=== PATIENT | female | born 1955 ===

== ENCOUNTER 2021-11-27 13:01 | Inpatient (IN) ==
[2021-11-27] MEDS ORDERED: ONDANSETRON 4 MG/2 ML VIAL IV PRN (15:37)
[2021-11-27] MEDS ORDERED: guaiFENesin/DM ER 600-30 MG TABLET PO PRN (15:37)
[2021-11-27] MEDS ORDERED: SODIUM CHLORIDE 0.9% 1,000 ML IV PRN (15:47)
[2021-11-27] MEDS ORDERED: ALBUTEROL 1.25 MG/3 ML NEB RESP TX PRN (15:51)
[2021-11-27] MEDS ORDERED: FUROSEMIDE 40 MG/4 ML VIAL IV ONE (15:52)
[2021-11-27] MEDS ORDERED: hydrALAZINE 25 MG TABLET PO PRN (16:25)
[2021-11-27] MEDS ORDERED: MAGNESIUM HYDROXIDE SUSP 30 ML UDCUP PO PRN (16:25)
[2021-11-27 16:44] LABS: Alanine Aminotransferase 10 U/L (13-56); Alkaline Phosphatase 41 U/L (45-117); Aspartate Amino Transferase 26 U/L (0-37); Bilirubin,Total < 0.39 MG/DL (0.20-1.00); Blood Urea Nitrogen 17 MG/DL (7-18); Calcium 7.4 MG/DL (8.5-10.1); Carbon Dioxide 30 MMOL/L (21-32); Estimated Glom Filtration Rate 8 ML/MIN; Glucose 71 MG/DL (74-106); Osmolality,Calculated 274.7 MOS/KG (273-304); Sodium 138 MMOL/L (136-145); Total Protein 4.8 G/DL (6.4-8.2)
[2021-11-27 17:00] LABS: Ferritin 1998.2 ng/mL (8-252)
[2021-11-27 17:21] LABS: Folate 20.68 NG/ML (5.38-24.0)
[2021-11-27] MEDS ORDERED: AMIODARONE 200 MG TABLET PO SCH (21:00)
[2021-11-27] MEDS: SEVELAMER CARBONATE 800 MG TABLET PO SCH (21:29)
[2021-11-27] MEDS: carvediloL 12.5 MG TABLET PO SCH (21:29)
[2021-11-27] MEDS: APIXABAN 2.5 MG TABLET PO SCH (21:29)
[2021-11-28] MEDS: GLUCAGON 1 MG VIAL IM PRN ×2 (00:41→08:14)
[2021-11-28] MEDS ORDERED: ETOMIDATE 20 MG/10 ML VIAL IV ONE ×2 (00:42→01:17)
[2021-11-28] MEDS ORDERED: VECURONIUM 10 MG VIAL IV ONE ×2 (00:43→01:20)
[2021-11-28] MEDS: DEXTROSE 10% 25 GM/250 ML BAG IV PRN ×4 (01:13→23:20)
[2021-11-28 02:02] LABS: ABG Base Excess 3.7 MMOL/L (-2.5-2.5); ABG HCO3 27.8 MMOL/L (20-26); ABG Oxygen Saturation 98.4 % (95-100); ABG PCO2 46.6 MM HG (35-48); ABG PH 7.401 (7.35-7.45); ABG TCO2 27.5 MMOL/L (23-27)
[2021-11-28] MEDS ORDERED: NOREPINEPHRINE 4 MG/4 ML VIAL IV ONE (02:38)
[2021-11-28 03:13] LABS: Eosinophils % 2.9 % (0.00-10.9); Hematocrit 21.3 VOL% (35.7-47.0); Hemoglobin 6.8 GM/DL (12.0-16.0); Immature Granulocytes % 2.9 %; Immature Granulocytes Absolute 0.02 #; Lymphocytes # 0.4 10*3/uL (1.4-4.0); Lymphocytes % 52.2 % (21.3-54.2); Mean Corpuscular HGB Conc 31.9 GM/DL (32-36); Mean Corpuscular Volume 97.3 FL (87-102); Monocytes % 4.3 % (1.7-12.7); Neutrophils % 37.7 % (38.7-73.9); Platelet Count 64 T/CUMM (130-400); Red Blood Count 2.19 MC/CUMM (3.8-5.5); Red Cell Distribution Width 14.9 % (9.3-17.3)
[2021-11-28 03:23] LABS: White Blood Count 0.7 T/CUMM (4-12)
[2021-11-28 03:52] LABS: Lymphocytes 64 % (20-55); Platelet Estimate Decreased; Segmented Neutrophils 29 % (50-85); Total Cells Counted 100
[2021-11-28 03:54] LABS: ABG Base Excess 3.8 MMOL/L (-2.5-2.5); ABG HCO3 27.8 MMOL/L (20-26); ABG Oxygen Saturation 93.5 % (95-100); ABG PCO2 43.7 MM HG (35-48); ABG PH 7.424 (7.35-7.45); ABG PO2 64.1 MM HG (80-95); ABG TCO2 27.3 MMOL/L (23-27)
[2021-11-28] MEDS: NOREPINEPHRINE 16 MG in SODIUM CHLORIDE 0.9% 234 ML IV PRN ×2 (03:59→21:47)
[2021-11-28] MEDS ORDERED: SODIUM BICARBONATE 50 MEQ/50 ML SYRINGE IV ONE ×2 (04:13→13:34)
[2021-11-28] MEDS ORDERED: VANCOMYCIN INJ 1,000 MG in SODIUM CHLORIDE 0.9% 250 ML IV ONE (04:17)
[2021-11-28] MEDS ORDERED: DEXTROSE 50% 25 GM/50 ML SYRINGE IV ONE (04:18)
[2021-11-28] MEDS ORDERED: HYDROCORTISONE 100 MG VIAL IV ONE (04:19)
[2021-11-28 04:30] LABS: INR 1.7; PT Patient Result 18.7 SECS (10.5-12.0); Partial Thromboplastin Time 50.3 SECS (23.8-32.1)
[2021-11-28] MEDS: HYDROCORTISONE 100 MG VIAL IV SCH ×3 (04:30→20:14)
[2021-11-28] MEDS ORDERED: EPINEPHrine 1 MG/10 ML SYRINGE IV ONE ×2 (04:38→13:34)
[2021-11-28 04:54] LABS: Bacteria,Urine Occasional /HPF (Few); Bilirubin,Urine Negative (Negative); Blood, Urine Small mg/dL (Negative); Glucose,Urine (UA) 50 mg/dL (Negative); Ketones,Urine 5 mg/dL (Negative); Mucus,Urine Occasional /LPF (Occasional); Nitrite,Urine Negative (Negative); Protein,Urine >=500 MG/DL; RBC,Urine 3 /HPF (0-4); Squamous Epithelial Cell,Urine Moderate /HPF (0-10); Urine Appearance Slightly Hazy (Clear); Urine Color Yellow (Yellow); Urine Specific Gravity 1.007 (1.001-1.035); Urine Urobilinogen < 2.0 EU/DL (<2.0)
[2021-11-28] MEDS ORDERED: MEROPENEM 500 MG in SODIUM CHLORIDE 0.9% 100 ML IV SCH ×2 (06:00→12:30)
[2021-11-28] MEDS: LEVOTHYROXINE 125 MCG TABLET PO SCH (06:28)
[2021-11-28 07:57] LABS: Albumin 1.8 G/DL (3.4-5.0); Bilirubin,Total 0.4 MG/DL (0.20-1.00); Calcium 8.6 MG/DL (8.5-10.1); Osmolality,Calculated 278.7 MOS/KG (273-304); Potassium 3.8 MMOL/L (3.5-5.1); Total Protein 4.3 G/DL (6.4-8.2)
[2021-11-28] MEDS: DEXTROSE 10% 1,000 ML IV SCH (08:00)
[2021-11-28] MEDS: ASCORBIC ACID 500 MG TABLET PO SCH (08:13)
[2021-11-28] MEDS: SEVELAMER CARBONATE 800 MG TABLET PO SCH ×3 (08:13→20:14)
[2021-11-28] MEDS: CHOLECALCIFEROL 1,000 UNIT TABLET PO SCH (08:13)
[2021-11-28] MEDS: APIXABAN 2.5 MG TABLET PO SCH ×2 (08:13→20:14)
[2021-11-28] MEDS: carvediloL 12.5 MG TABLET PO SCH (08:13)
[2021-11-28] MEDS: ZINC GLUCONATE 50 MG TABLET PO SCH (08:14)
[2021-11-28] MEDS ORDERED: ARIPiprazole 15 MG TABLET PO SCH (09:00)
[2021-11-28] MEDS ORDERED: PANTOPRAZOLE 40 MG TABLET PO SCH (09:00)
[2021-11-28] MEDS ORDERED: MEROPENEM 1,000 MG in SODIUM CHLORIDE 0.9% 100 ML IV SCH (09:35)
[2021-11-28] MEDS: MEROPENEM 500 MG in SODIUM CHLORIDE 0.9% 100 ML IV SCH (12:22)
[2021-11-28] MEDS ORDERED: DOPamine 800 MG/250 ML PREMIX IV PRN (12:51)
[2021-11-28] MEDS ORDERED: DOPamine 800 MG/250 ML PREMIX IV ONE (12:54)
[2021-11-28 13:03] LABS: Basophils % 1.3 % (0.0-0.8); Eosinophils % 1.3 % (0.00-10.9); Hematocrit 26.9 VOL% (35.7-47.0); Hemoglobin 8.3 GM/DL (12.0-16.0); Immature Granulocytes % 1.3 %; Immature Granulocytes Absolute 0.01 #; Lymphocytes # 0.4 10*3/uL (1.4-4.0); Lymphocytes % 43.8 % (21.3-54.2); Mean Corpuscular HGB Conc 30.9 GM/DL (32-36); Mean Corpuscular Volume 93.7 FL (87-102); Mean Platelet Volume 11.4 FL (9.6-12.0); Monocytes % 2.5 % (1.7-12.7); NRBC # 0.02 10*3/uL; Neutrophils % 49.8 % (38.7-73.9); Platelet Count 48 T/CUMM (130-400); Red Blood Count 2.87 MC/CUMM (3.8-5.5); Red Cell Distribution Width 19.8 % (9.3-17.3)
[2021-11-28 13:09] LABS: White Blood Count 0.8 T/CUMM (4-12)
[2021-11-28 13:22] LABS: Albumin 1.7 G/DL (3.4-5.0); Bilirubin,Total 0.6 MG/DL (0.20-1.00); Calcium 7.1 MG/DL (8.5-10.1); Osmolality,Calculated 271.2 MOS/KG (273-304); Potassium 4.2 MMOL/L (3.5-5.1); Total Protein 4.2 G/DL (6.4-8.2)
[2021-11-28] MEDS ORDERED: CALCIUM CHLORIDE 1,000 MG/10 ML SYRINGE IV ONE (13:34)
[2021-11-28 14:03] LABS: Atypical Lymphocytes Many; Lymphocytes 72 % (20-55); Nucleated Red Blood Cells 2 (0-5); Segmented Neutrophils 25 % (50-85); Total Cells Counted 100
[2021-11-28 14:04] LABS: Burr Cells Few; Schistocytes Few; Target Cells Few
[2021-11-28 14:05] LABS: Anisocytosis 1+; Platelet Estimate Decreased
[2021-11-28 14:06] LABS: Hypochromia 1+
[2021-11-28] MEDS: ACETAMINOPHEN 325 MG TABLET PO PRN (23:09)
[2021-11-28] MEDS: PHENYLEPHRINE DRIP 40 MG/250 ML PREMIX IV PRN (23:50)
[2021-11-29] MEDS: PHENYLEPHRINE DRIP 40 MG/250 ML PREMIX IV PRN (01:50)
[2021-11-29] MEDS: NOREPINEPHRINE 16 MG in SODIUM CHLORIDE 0.9% 234 ML IV PRN ×6 (01:50→23:03)
[2021-11-29] MEDS: DEXTROSE 10% 1,000 ML IV SCH ×2 (03:38→10:56)
[2021-11-29] MEDS: HYDROCORTISONE 100 MG VIAL IV SCH ×3 (03:38→20:13)
[2021-11-29] MEDS: PHENYLEPHRINE INJ 160 MG in SODIUM CHLORIDE 0.9% 234 ML IV PRN ×3 (03:45→20:17)
[2021-11-29 04:09] LABS: ABG Base Excess -11.1 MMOL/L (-2.5-2.5); ABG HCO3 15.4 MMOL/L (20-26); ABG Oxygen Saturation 77.2 % (95-100); ABG PCO2 51.9 MM HG (35-48); ABG PO2 52.5 MM HG (80-95)
[2021-11-29 04:11] LABS: ABG PH 7.148 (7.35-7.45)
[2021-11-29] MEDS ORDERED: SODIUM BICARBONATE 50 MEQ/50 ML VIAL IV ONE (04:15)
[2021-11-29 04:29] LABS: Calcium 6.4 MG/DL (8.5-10.1); Osmolality,Calculated 265.8 MOS/KG (273-304); Potassium 4.4 MMOL/L (3.5-5.1)
[2021-11-29 04:42] LABS: Eosinophils % 0.5 % (0.00-10.9); Hematocrit 33.6 VOL% (35.7-47.0); Hemoglobin 10.6 GM/DL (12.0-16.0); Lymphocytes # 0.3 10*3/uL (1.4-4.0); Lymphocytes % 18.1 % (21.3-54.2); Mean Corpuscular HGB Conc 31.5 GM/DL (32-36); Mean Corpuscular Volume 95.2 FL (87-102); Monocytes % 2.7 % (1.7-12.7); NRBC # 0.02 10*3/uL; Neutrophils % 78.7 % (38.7-73.9); Red Blood Count 3.53 MC/CUMM (3.8-5.5); Red Cell Distribution Width 18.7 % (9.3-17.3); White Blood Count 1.9 T/CUMM (4-12)
[2021-11-29 04:44] LABS: Platelet Count 15 T/CUMM (130-400)
[2021-11-29] MEDS ORDERED: SODIUM CHLORIDE 0.9% 1,000 ML IV PRN ×2 (04:49→10:53)
[2021-11-29] MEDS: ACETAMINOPHEN 325 MG TABLET PO PRN ×2 (04:56→20:15)
[2021-11-29 05:05] LABS: Hypochromia Slight; Platelet Estimate Decreased
[2021-11-29] MEDS ORDERED: MEROPENEM 500 MG in SODIUM CHLORIDE 0.9% 100 ML IV SCH (06:00)
[2021-11-29 06:18] LABS: Eosinophils 2 % (0-10); Lymphocytes 37 % (20-55); Nucleated Red Blood Cells 3 (0-5); Segmented Neutrophils 19 % (50-85); Total Cells Counted 101
[2021-11-29] MEDS: LEVOTHYROXINE 125 MCG TABLET PO SCH (06:22)
[2021-11-29] MEDS: ASCORBIC ACID 500 MG TABLET PO SCH (08:10)
[2021-11-29] MEDS: CHOLECALCIFEROL 1,000 UNIT TABLET PO SCH (08:10)
[2021-11-29] MEDS: PANTOPRAZOLE 40 MG VIAL IV SCH (08:10)
[2021-11-29] MEDS: SEVELAMER CARBONATE 800 MG TABLET PO SCH ×3 (08:10→20:13)
[2021-11-29] MEDS: APIXABAN 2.5 MG TABLET PO SCH (08:10)
[2021-11-29] MEDS: ZINC GLUCONATE 50 MG TABLET PO SCH (08:10)
[2021-11-29 09:29] LABS: ABG Base Excess -6.5 MMOL/L (-2.5-2.5); ABG PH 7.276 (7.35-7.45); ABG PO2 53.2 MM HG (80-95); ABG TCO2 21.4 MMOL/L (23-27)
[2021-11-29 13:03] LABS: Basophils % 0.4 % (0.0-0.8); Hematocrit 33.8 VOL% (35.7-47.0); Hemoglobin 10.6 GM/DL (12.0-16.0); Immature Granulocytes % 0.4 %; Immature Granulocytes Absolute 0.01 #; Lymphocytes # 0.2 10*3/uL (1.4-4.0); Mean Corpuscular HGB Conc 31.4 GM/DL (32-36); Mean Corpuscular Volume 95.8 FL (87-102); Monocytes % 3.1 % (1.7-12.7); NRBC # 0.02 10*3/uL; Neutrophils % 87.1 % (38.7-73.9); Red Blood Count 3.53 MC/CUMM (3.8-5.5); Red Cell Distribution Width 18.6 % (9.3-17.3); White Blood Count 2.6 T/CUMM (4-12)
[2021-11-29 13:07] LABS: Platelet Count 16 T/CUMM (130-400)
[2021-11-29] MEDS: MEROPENEM 500 MG in SODIUM CHLORIDE 0.9% 100 ML IV SCH (13:19)
[2021-11-29 13:57] LABS: Band Neutrophils 1 % (0-10); Eosinophils 1 % (0-10); Lymphocytes 8 % (20-55); Metamyelocytes 1 %; Nucleated Red Blood Cells 1 (0-5); Segmented Neutrophils 83 % (50-85); Total Cells Counted 100
[2021-11-29 14:02] LABS: Platelet Estimate Decreased
[2021-11-29 14:06] LABS: Burr Cells 1+; Hypochromia 1+
[2021-11-29] MEDS: DEXTROSE 10% 25 GM/250 ML BAG IV PRN ×2 (14:47→17:35)
[2021-11-30] MEDS: ACETAMINOPHEN 325 MG TABLET PO PRN (00:25)
[2021-11-30] MEDS: DEXTROSE 10% 1,000 ML IV SCH (00:40)
[2021-11-30] MEDS: NOREPINEPHRINE 16 MG in SODIUM CHLORIDE 0.9% 234 ML IV PRN ×2 (03:36→09:09)
[2021-11-30 03:49] LABS: ABG Base Excess -10.5 MMOL/L (-2.5-2.5); ABG HCO3 15.9 MMOL/L (20-26); ABG Oxygen Saturation 84.7 % (95-100); ABG PCO2 46.5 MM HG (35-48); ABG PO2 57.9 MM HG (80-95); ABG TCO2 16.7 MMOL/L (23-27)
[2021-11-30 03:52] LABS: ABG PH 7.185 (7.35-7.45)
[2021-11-30 03:57] LABS: Basophils % 0.3 % (0.0-0.8); Hematocrit 29.7 VOL% (35.7-47.0); Hemoglobin 9.3 GM/DL (12.0-16.0); Immature Granulocytes % 1.5 %; Immature Granulocytes Absolute 0.09 #; Lymphocytes # 0.2 10*3/uL (1.4-4.0); Lymphocytes % 2.9 % (21.3-54.2); Mean Corpuscular HGB Conc 31.3 GM/DL (32-36); Mean Corpuscular Volume 94.3 FL (87-102); Monocytes % 10.1 % (1.7-12.7); NRBC # 0.03 10*3/uL; Neutrophils % 85.2 % (38.7-73.9); Red Blood Count 3.15 MC/CUMM (3.8-5.5); Red Cell Distribution Width 18.6 % (9.3-17.3); White Blood Count 5.8 T/CUMM (4-12)
[2021-11-30] MEDS ORDERED: SODIUM BICARBONATE 50 MEQ/50 ML VIAL IV ONE (03:59)
[2021-11-30 04:02] LABS: Platelet Count 3 T/CUMM (130-400)
[2021-11-30] MEDS ORDERED: SODIUM CHLORIDE 0.9% 1,000 ML IV PRN (04:05)
[2021-11-30 04:19] LABS: Calcium 6.4 MG/DL (8.5-10.1); Osmolality,Calculated 265.8 MOS/KG (273-304); Potassium 3.7 MMOL/L (3.5-5.1)
[2021-11-30] MEDS: HYDROCORTISONE 100 MG VIAL IV SCH (04:19)
[2021-11-30] MEDS ORDERED: SODIUM BICARB INJ 100 MEQ in DEXTROSE 5% 1,000 ML IV SCH (05:00)
[2021-11-30] MEDS: PHENYLEPHRINE INJ 160 MG in SODIUM CHLORIDE 0.9% 234 ML IV PRN (05:04)
[2021-11-30] MEDS: LEVOTHYROXINE 125 MCG TABLET PO SCH (06:04)
[2021-11-30 06:18] LABS: Band Neutrophils 7 % (0-10); Lymphocytes 3 % (20-55); Platelet Estimate Decreased; Segmented Neutrophils 74 % (50-85); Total Cells Counted 100
[2021-11-30 06:19] LABS: Burr Cells 1+
[2021-11-30 06:20] LABS: Ovalocytes Few; Schistocytes Few
[2021-11-30] MEDS: CHOLECALCIFEROL 1,000 UNIT TABLET PO SCH (08:04)
[2021-11-30] MEDS: ASCORBIC ACID 500 MG TABLET PO SCH (08:04)
[2021-11-30] MEDS: SEVELAMER CARBONATE 800 MG TABLET PO SCH (08:04)
[2021-11-30] MEDS: PANTOPRAZOLE 40 MG VIAL IV SCH (08:04)
[2021-11-30] MEDS: ZINC GLUCONATE 50 MG TABLET PO SCH (08:04)
[2021-11-30] MEDS: DEXTROSE 10% 25 GM/250 ML BAG IV PRN (09:00)
[2021-11-30 09:09] VITALS: BP 113/51
[2021-11-30 11:45] LABS: Hematocrit 23.3 VOL% (35.7-47.0); Hemoglobin 7.3 GM/DL (12.0-16.0)
[2021-11-30] MEDS ORDERED: MORPHINE 2 MG/1 ML SYRINGE IV PRN (13:20)
[2021-11-30] MEDS ORDERED: PANTOPRAZOLE 40 MG VIAL IV SCH (21:00)
== END 2021-11-30 13:35 | disposition expired | DRG 871 ==
LOC: SUATTDRO 14:55 → N.5E 14:55 → N.CC 11-28 00:12
PROVIDERS: ADMIT Internal Medicine; ATTEND Internal Medicine